=== PATIENT | male | born 1930 | race Two or more races ===

== ENCOUNTER 2019-02-21 15:54 | Outpatient (CLI) | payer MEDICARE, MEDICAID ==
[~2019-02-21 15:54] MED LIST: MULTI-DAY VITA1 EAC1 ORAL; NAMENDA10 MG ORAL; PRADAXA150 MG ORAL; PROPAFENONE HC225 M1 PO; RITMOL ORAL; SYMBICORT 1601 PUFFS INH; TOPROL XL50 MG ORAL; VENLAFAXINE HCL75 MG ORAL
--- NOTE | 2019-02-21 17:03 | Diagnostic Imaging Report ---
Indication: Cough Comparison: None 2 views of the chest obtained. Findings: There is a small left apical pneumothorax demonstrated. There is suggestion of an air-fluid level projected over the left upper lobe. The configuration suggests partial loculation. There is also suggestion of pleural thickening and/or additional pleural fluid at the left lung base. Air bronchograms are noted in the left lower lobe. The heart is enlarged. Reticular densities noted throughout both lung guaman. Left-sided pacemaker is present. There are surgical clips in the right upper quadrant abdomen. Bones are osteopenic. IMPRESSION: Small left hydropneumothorax, probably partially loculated. No prior studies for comparison. Small left pleural effusion versus pleural thickening. Pacemaker. Cardiomegaly with reticular interstitial lung markings. Acuity of this is not known. Mild CHF not excluded. Correlate clinically. Retrocardiac consolidation versus atelectasis. Note: Findings discussed with Dr. Hawkins via telephone at 5:00 PM 02/21/2019
== END 2019-02-21 17:54 | disposition home or self-care (01) ==
LOC: RAD 15:54
DX: R05 Cough (principal); Z95.0 Presence of cardiac pacemaker; I51.7 Cardiomegaly; M85.80 Other specified disorders of bone density and structure, unspecified site; J94.8 Other specified pleural conditions
CPT/HCPCS: 71046